=== PATIENT | female | born 1975 | race African-American/Black ===

== ENCOUNTER 2019-08-09 01:14 | Emergency (ER) | payer BC ==
[~2019-08-09] VITALS: Ht 160 cm; Wt 67.1 kg
[2019-08-09 01:20] VITALS: BP 135/75
--- NOTE | 2019-08-09 02:23 | PHYS DOC ---
Past Medical History Past Medical History: No Pertinent History Past Surgical History: Other Additional Past Surgical Histo: BREAST AUGMENTTATION Alcohol Use: Rarely Drug Use: None Adult General Chief Complaint Chief Complaint: SORE THROAT HPI HPI 43-year-old female presents with complaints of cough, congestion over the last 2 days, she states she Maceo better today however lost her voice was concerned about pain with swallowing. Patient denies any current fever, nausea, vomiting, chest pain, shortness of breath. Nothing makes her symptoms worse, nothing makes her symptoms better. All other ROS negative unless documented in HPI Review of Systems Review of Systems See Above Current Medications Current Medications Current Medications Medications (Trade) Dose Ordered Sig/Preet Start Time Stop Time Status Last Admin Dose Admin Dexamethasone Sodium Phosphate (Decadron) 10 mg 1X ONCE 08/09/19 02:30 08/09/19 02:31 UNV Allergies Allergies Allergies Coded Allergies Type Severity Reaction Last Updated Verified No Known Drug Allergies 08/09/19 No Physical Exam Physical Exam See Above Constitutional: Well developed, well nourished, no acute distress, non-toxic appearance. [] HENT: Normocephalic, atraumatic, bilateral external ears normal, oropharynx moist red however no exudate, no oral exudates, nose normal. [] Eyes: PERRLA, EOMI, conjunctiva normal, no discharge. [] Neck: Normal range of motion, no tenderness, supple, no stridor. [] Cardiovascular:Heart rate regular rhythm, no murmur [] Lungs & Thorax: Bilateral breath sounds clear to auscultation [] Skin: Warm, dry, no erythema, no rash. [] Neurologic: Alert and oriented X 3, no focal deficits noted. [] Psychologic: Affect normal, judgement normal, mood normal. [] Current Patient Data Vital Signs Vital Signs Date Time Temp Pulse Resp B/P (MAP) Pulse Ox O2 Delivery O2 Flow Rate FiO2 08/09/19 01:20 98.1 88 14 135/75 (95) 99 Room Air 98.1 EKG EKG [] Radiology/Procedures Radiology/Procedures [] Course & Med Decision Making Course & Med Decision Making Pertinent Labs and Imaging studies reviewed. (See chart for details) []43-year-old female presents with complaints of cough, congestion over the last 2 days, she states she Maceo better today however lost her voice was concerned about pain with swallowing. Patient denies any current fever, nausea, vomiting, chest pain, shortness of breath. Nothing makes her symptoms worse, nothing makes her symptoms better. Rapid strep negative Discussed symptomatic treatment Decadron 10mg PO x 1 Recommend follow up with PCP as needed Return precautions provided Dragon Disclaimer Dragon Disclaimer This electronic medical record was generated, in whole or in part, using a voice recognition dictation system. Departure Departure Impression: Primary Impression: Viral syndrome Additional Impression: Laryngitis Disposition: HOME, SELF-CARE Condition: STABLE Referrals: UNKNOWN PCP NAME (PCP) Patient Instructions: Laryngitis, [id number], Viral Syndrome Additional Instructions: Recommend follow up with PCP 3 - 5 days Return to the ER with worsening symptoms, intractable pain, fever, altered mental status Tylenol/Motrin as needed for pain Decadron 10mg po x 1 - inflammation treatment Symptomatic treatment with OTC medications as needed Strep negative for acute infection Problem Qualifiers NICHOLE MCGOWAN MD Aug 09, 2019 02:23
[2019-08-09] MEDS ORDERED: DEXAMETHASONE SOD PHOS 20 MG/5 ML VIAL. PO ONE (02:45)
== END 2019-08-09 02:47 | disposition home or self-care (01) ==
LOC: ER 01:14
DX: J04.0 Acute laryngitis (principal); B34.9 Viral infection, unspecified
CPT/HCPCS: 87070; 87880; 99283; J1100